=== PATIENT | female | born 1955 ===

== ENCOUNTER 2018-10-30 10:30 | Outpatient (CLI) | payer OTHER ==
[~2018-10-30] VITALS: Ht 152.4 cm; Wt 81.2 kg
== END 2018-10-30 10:45 | disposition home or self-care (01) ==
LOC: OFIC 805 10:30
DX: H90.3 Sensorineural hearing loss, bilateral (principal); H92.02 Otalgia, left ear; H60.8X2 Other otitis externa, left ear

== ENCOUNTER 2019-06-15 11:13 | Outpatient (CLI) | payer OTHER ==
[~2019-06-15] VITALS: Ht 152.4 cm; Wt 79.4 kg
== END 2019-06-15 14:56 | disposition home or self-care (01) ==
LOC: OFIC 805 11:13
DX: H92.02 Otalgia, left ear (principal); R42 Dizziness and giddiness; H90.3 Sensorineural hearing loss, bilateral

== ENCOUNTER 2019-07-20 14:36 | Outpatient (CLI) | payer OTHER ==
[~2019-07-20] VITALS: Ht 152.4 cm; Wt 79.4 kg
== END 2019-07-20 15:38 | disposition home or self-care (01) ==
LOC: OFIC 805 14:36
DX: H90.3 Sensorineural hearing loss, bilateral (principal); R42 Dizziness and giddiness
CPT/HCPCS: 99213; G0463

== ENCOUNTER 2019-10-05 09:25 | Outpatient (CLI) | payer OTHER ==
[2019-10-05] MEDS ORDERED: NEILMED SINUS1 EAC1 NASAL (11:57)
[2019-10-05] MEDS ORDERED: FLONASE16 GM NASAL (11:57)
[2019-10-05] MEDS ORDERED: CIPRODEX OTIC7.5 ML OT (11:59)
== END 2019-10-05 12:13 | disposition home or self-care (01) ==
LOC: OFIC 805 09:25
PROVIDERS: ATTEND Otolaryngology
DX: H92.02 Otalgia, left ear (principal); R42 Dizziness and giddiness; H90.3 Sensorineural hearing loss, bilateral; H70.11 Chronic mastoiditis, right ear; J32.0 Chronic maxillary sinusitis

== ENCOUNTER 2019-11-02 09:25 | Outpatient (CLI) | payer OTHER ==
[~2019-11-02 09:25] MED LIST: CIPRODEX OTIC7.5 ML OT; FLONASE16 GM NASAL; NEILMED SINUS1 EAC1 NASAL
[2019-11-02] MEDS ORDERED: FLONASE16 GM NASAL (12:45)
[2019-11-02] MEDS ORDERED: NEILMED SINUS1 EACH NASAL (12:45)
[2019-11-02] MEDS ORDERED: SINGULAIR10 MG PO (12:46)
== END 2019-11-02 09:32 | disposition home or self-care (01) ==
LOC: OFIC 805 09:25
PROVIDERS: ATTEND Otolaryngology
DX: H70.11 Chronic mastoiditis, right ear (principal); H92.02 Otalgia, left ear; R42 Dizziness and giddiness; H90.3 Sensorineural hearing loss, bilateral

== ENCOUNTER → 2020-02-22 | Outpatient (CLI) | payer OTHER ==
[~2020-02-22] MED LIST changes: +NEILMED SINUS1 EACH NASAL; +SINGULAIR10 MG PO
== END | disposition home or self-care (01) ==
LOC: OFIC 805 02-01 10:05
PROVIDERS: ATTEND Otolaryngology
DX: R42 Dizziness and giddiness (principal); L29.8 Other pruritus